=== PATIENT | male | born 1980 | race African-American/Black ===

== ENCOUNTER 2019-01-01 07:49 | Emergency (ER) | payer OTHER ==
[~2019-01-01] VITALS: Ht 180.3 cm; Wt 122.5 kg
[~2019-01-01 07:49] MED LIST: KEFLEX500 MG PO; LIDOCAINE VISC100 M1 MUCOUS MEM; LOPERAMIDE 2 MG2 M1 PO; NOHOMEMEDICATIONS; ZOFRAN ODT4 MG PO
[2019-01-01 09:32] VITALS: BP 134/62
== END 2019-01-01 09:29 | disposition home or self-care (01) ==
LOC: ER 07:49
DX: J02.0 Streptococcal pharyngitis (principal)